=== PATIENT | female | born 1985 | race Caucasian/White ===

== ENCOUNTER 2017-12-17 12:33 | Outpatient (CLI) | payer OTHER ==
[~2017-12-17 12:33] MED LIST: PNEU16DI2; PRENATABS FA T1 EACH; ZYRTEC10 M3
== END 2017-12-17 13:39 | disposition home or self-care (01) ==
LOC: NST 12:33
DX: Z34.02 Encounter for supervision of normal first pregnancy, second trimester (principal)

== ENCOUNTER 2018-02-22 06:59 | Outpatient (CLI) | payer OTHER | END 2018-02-22 17:32 | disposition home or self-care (01) | LOC: NST 06:59 → OBS/DEL 06:59 | DX: O46.8X3 Other antepartum hemorrhage, third trimester (principal); O60.03 Preterm labor without delivery, third trimester; Z34.83 Encounter for supervision of other normal pregnancy, third trimester ==

== ENCOUNTER 2018-04-10 11:41 | Inpatient (IN) | payer OTHER ==
[~2018-04-10] VITALS: Ht 160 cm; Wt 222.0 kg
[2018-04-16] MEDS ORDERED: FOLGARD TABLET1 EACH PO (08:27)
[2018-04-16] MEDS ORDERED: CLARITIN10 M1 PO (08:28)
== END 2018-04-19 16:45 | DRG 766 ==
LOC: LDR 04-16 07:11 → OB/GYN 04-16 07:11 → LDR 04-23 11:41
PROVIDERS: Obstetrics & Gynecology
PROC: 3E0P7VZ Introduction of Hormone into Female Reproductive, Via Natural or Artificial Opening (ICD-10-PCS; 2018-04-16)
PROC: 4A1HXCZ Monitoring of Products of Conception, Cardiac Rate, External Approach (ICD-10-PCS; 2018-04-16)
PROC: 10D00Z1 Extraction of Products of Conception, Low, Open Approach (ICD-10-PCS; principal; 2018-04-16 18:00)
DX: O61.0 Failed medical induction of labor (principal); O24.420 Gestational diabetes mellitus in childbirth, diet controlled; Z3A.39 39 weeks gestation of pregnancy; Z37.0 Single live birth

== ENCOUNTER 2022-03-04 09:19 | Day surgery (SDC) | payer OTHER ==
[~2022-03-04] VITALS: Ht 165.1 cm; Wt 99.8 kg
[~2022-03-04 09:19] MED LIST changes: +CLARITIN10 M1 PO; +FOLGARD TABLET1 EACH PO
[2022-03-04] MEDS ORDERED: PROPRANOLOL HC120 MG PO (09:34)
[2022-03-04] MEDS ORDERED: AYGESTIN5 MG PO (09:34)
== END 2022-03-04 22:55 | disposition home or self-care (01) ==
LOC: ER 09:19 → CIR.AMB 12:31
PROVIDERS: ATTEND Obstetrics & Gynecology
DX: N93.9 Abnormal uterine and vaginal bleeding, unspecified (principal); Z91.013 Allergy to seafood; I10 Essential (primary) hypertension